=== PATIENT | female | born 1965 | race Caucasian/White ===

== ENCOUNTER → 2024-06-01 09:58 | Outpatient (REF) | payer BC, SELFPAY | LOC: RAD 09:58 | PROVIDERS: ATTENDING PHYSICIAN Internal Medicine; FAMILY PHYSICIAN Family Medicine | DX: M05.9 Rheumatoid arthritis with rheumatoid factor, unspecified (principal); Z51.81 Encounter for therapeutic drug level monitoring | CPT/HCPCS: 73130 ==

== ENCOUNTER → 2024-10-07 09:27 | Outpatient (REF) | payer BC, SELFPAY | LOC: PAVMRI 09:27 | PROVIDERS: ATTENDING PHYSICIAN Internal Medicine; FAMILY PHYSICIAN Nurse Practitioner Family | DX: M79.642 Pain in left hand (principal); M25.532 Pain in left wrist | CPT/HCPCS: 73218; 73221 ==